=== PATIENT | male | born 1995 | race Caucasian/White ===

== ENCOUNTER 2017-04-25 20:10 | Emergency (ER) | payer BC ==
[2017-04-25 20:22] VITALS: BP 109/69; PULSE 116; RESP 16; TEMP 99; O2SAT 98
--- NOTE | 2017-04-25 20:38 | EDPHY ---
H & P Time Seen by Provider: 04/25/17 20:31 HPI/ROS: CHIEF COMPLAINT: Right middle digit laceration HISTORY OF PRESENT ILLNESS: 21-year-old male with up-to-date tetanus sustained accidental laceration right middle digit middle phalanx when he was cleaning glass and the glass broke. No paresthesia. No sensory motor deficit occurred shortly prior to arrival PHYSICAL EXAM (Prior to examination, patient consented to physical exam, hands were washed and my usual and customary physical exam procedures followed) 1) GENERAL: Well-developed, well-nourished, alert and oriented. Appears to be in no acute distress. 2) HEAD: Normocephalic 3) HEENT: sclera anicteric 4) LUNGS: Breathing comfortably. 5) SKIN: Right middle digit middle phalanx palmar aspect 2 cm transverse laceration. 6) MUSCULOSKELETAL: FDP FDS function intact . No signs of infection 7) NEUROLOGIC: Full sensation two-point discrimination intact distally Smoking Status: Never smoked Constitutional: Initial Vital Signs Temperature (C) 37.2 C 04/25/17 20:18 Heart Rate 116 H 04/25/17 20:18 Respiratory Rate 16 04/25/17 20:18 Blood Pressure 109/69 04/25/17 20:18 O2 Sat (%) 98 04/25/17 20:18 O2 Delivery Mode Room Air Allergies/Adverse Reactions: No Known Allergies Allergy (Unverified 01/30/16 23:03) Home Medications: Medication Instructions Recorded Adderall 10 mg Tablet 01/30/16 MDM/Departure - [facility] Imaging Results: Imaging Impressions Finger X-Ray 04/25/17 20:38 Impression: Soft tissue injury right 3rd finger, without evidence for osseous fracture or radiopaque foreign body. Procedures: Procedure: Laceration repair. I explained the indications, risks and benefits for both laceration repair and anesthetic administration. Verbal consent was obtained from the patient. The laceration on the right middle digit was anesthetized using 0.5% bupivicaine without epinephrine digital nerve block. After anesthetic administered the patient was observed for a period of time and had no apparent adverse effects. The wound was cleaned, prepped, draped in normal sterile fashion and explored to its base. No foreign body seen, no foreign bodies palpated. There were no deep structures involved. No tendon injury was identified. The wound was repaired with 4 simple interrupted 5 O Prolene sutures. The wound repair was simple. The procedure was performed by myself. Patient has been informed that scarring will occur, although efforts have been made to minimize this. ED Course/Re-evaluation: Care of patient under supervision of secondary supervising physician Dr Lyn Villafana. - Depart Disposition: Home, Routine, Self-Care Clinical Impression: Finger laceration Qualifiers: Encounter type: initial encounter Finger: middle finger Damage to nail status: without damage Foreign body presence: without foreign body Laterality: right Qualified Code(s): S61.212A - Laceration without foreign body of right middle finger without damage to nail, initial encounter Condition: Good Instructions: Care For Your Stitches (ED), Laceration (ED) Additional Instructions: Return to the ER if you develop redness, swelling, discharge, warmth to the wound, red streaks going up your arm, or any other symptoms that concern you. Referrals: Return, to the ER in 10 days for suture removal [Other] - As per Instructions
== END 2017-04-25 21:28 | disposition home or self-care (01) ==
PROC: 0HQFXZZ Repair Right Hand Skin, External Approach (ICD-10-PCS; principal; 2017-04-25)
DX: S61.212A Laceration without foreign body of right middle finger without damage to nail, initial encounter (principal); W25.XXXA Contact with sharp glass, initial encounter; Y93.G1 Activity, food preparation and clean up

== ENCOUNTER 2017-06-11 20:50 | Emergency (ER) | payer BC ==
--- NOTE | 2017-06-11 21:38 | EDPHY ---
H & P Stated Complaint: laceration ETOH Time Seen by Provider: 06/11/17 21:04 HPI/ROS: HPI CHIEF COMPLAINT: Multiple hand last night after punching a window, alk toxication HISTORY OF PRESENT ILLNESS: This patient is a 21-year-old male, [employer] student, he presents emergency room highly intoxicated with alcohol and he punched a glass window. Patient has multiple lacerations to both hands. Denies any other injuries. However he states he drank a large amount of alcohol this evening. Past Medical History: Denies medical history Past Surgical History: Denies surgical history Social History: [employer] student. Large amount of alcohol this evening. Multiple beers. Denies drugs or tobacco. Family History: Noncontributory ROS REVIEW OF SYSTEMS: A comprehensive 10 point review of systems is otherwise negative aside from elements mentioned in the history of present illness. Exam Constitutional intoxicated, smells of alcohol, triage nursing summary reviewed , vital signs reviewed, awake/alert. Eyes normal conjunctivae and sclera, EOMI, PERRLA. HENT normal inspection, atraumatic, moist mucus membranes, no epistaxis, neck supple/ no meningismus, no raccoon eyes. Respiratory clear to auscultation bilaterally, normal breath sounds, no respiratory distress, no wheezing. Cardiovascular rate normal, regular rhythm, no murmur, no edema, distal pulses normal. Gastrointestinal soft, non-tender, no rebound, no guarding, normal bowel sounds, no distension, no pulsatile mass. Genitourinary no CVA tenderness. Musculoskeletal no midline vertebral tenderness, full range of motion, no calf swelling, no tenderness of extremities, no meningismus, good pulses, neurovascularly intact. Skin bilateral hands: Over the dorsum of the hands he has multiple lacerations. On his right hand he has a 3 cm laceration over the 3rd digit dorsal aspect over the knuckle. The left hand shows 2 cm laceration over the 3rd digit over the knuckle. At the base of the 5th digit on the left hand there is a 3 cm laceration present. No arterial vomit. No tendon involvement. He is neurovascular intact bilaterally. Full range of motion of both digits and hands. Neurologic awake, alert and oriented x 3, AAOx3, moves all 4 extremities equally, motor intact, sensory intact, CN II-XII intact, normal cerebellar, normal vision, normal speech. Psychiatric normal mood/affect. Heme/Lymph/Immune no lymphadenopathy. Differential Diagnosis: Includes but is not limited to in a particular order multiple hand lacerations, alcohol intoxication, hand fractures, foreign bodies , glass foreign body, tendon injury, arterial injury Medical Decision Making: Patient's hands been copiously cleaned and irrigated his wounds have been copiously cleaned and irrigated, there are no foreign bodies visualized. Specifically no retained glass. No tendon injury. No arterial injury. His lacerations will be repaired. X-rays have been reviewed of both hands no foreign bodies visualized. No hand fractures. Re-evaluation: Laceration Repair Procedure: Verbal Consent was obtained, Under sterile conditions, The patient had lidocaine with epinephrine used approximately 3ccs to local anesthetize the RIGHT HAND third digit, 3CM Laceration. The wound was copiously irrigated with sterile fluid, the wound was explored for foreign bodies there were none visualized, the wound was explored with a sterile glove to the base. There are no deep structures involved, including no arterial injury. TWO 6.O PROLENE interrupted Sutures were placed in this patient's laceration. He had good close approximation of the wound edges. He Tolerated this well. Laceration Repair Procedure: Verbal Consent was obtained, Under sterile conditions, The patient had lidocaine with epinephrine used approximately 3ccs to local anesthetize theLEFT HAND 2CM 3rd Digit Laceration. The wound was copiously irrigated with sterile fluid, the wound was explored for foreign bodies there were none visualized, the wound was explored with a sterile glove to the base. There are no deep structures involved, including no arterial injury. ONE PROLENE 6.O interrupted Sutures were placed in this patient's laceration. He had good close approximation of the wound edges. He Tolerated this well. Laceration Repair Procedure: Verbal Consent was obtained, Under sterile conditions, The patient had lidocaine with epinephrine used approximately 3ccs to local anesthetize the LEFT HAND 3CM base of fifth digit, dorsal side Laceration. The wound was copiously irrigated with sterile fluid, the wound was explored for foreign bodies there were none visualized, the wound was explored with a sterile glove to the base. There are no deep structures involved, including no arterial injury. TWO PROLENE 6.O interrupted Sutures were placed in this patient's laceration. He had good close approximation of the wound edges. He Tolerated this well. Patient understands keep his wound clean, dry and protected. Sutures need to be removed in 12-14 days. Patient understands. Band-Aids have been placed for wound protection. Understands have sutures removed in 12 days. Understands to keep wound clean dry and intact. Understands watch for signs of infection return emergency room if there is any worsening symptoms questions or concerns. - Personal History Current Tetanus/Diphtheria Vaccine: Yes Current Tetanus Diphtheria and Acellular Pertussis (TDAP): Yes - Medical/Surgical History Hx Asthma: No Hx Chronic Respiratory Disease: No Hx Diabetes: No Hx Cardiac Disease: No Hx Renal Disease: No Hx Cirrhosis: No Hx Alcoholism: No Hx HIV/AIDS: No Hx Splenectomy or Spleen Trauma: No Other PMH: denies - Social History Smoking Status: Never smoked Constitutional: Initial Vital Signs Temperature (C) 36.9 C 06/11/17 21:22 Heart Rate 106 H 06/11/17 21:22 Respiratory Rate 16 06/11/17 21:22 Blood Pressure 122/73 H 06/11/17 21:22 O2 Sat (%) 95 06/11/17 21:22 O2 Delivery Mode Room Air Allergies/Adverse Reactions: No Known Allergies Allergy (Unverified 01/30/16 23:03) Home Medications: Medication Instructions Recorded Adderall 10 mg Tablet 01/30/16 Departure - Departure Disposition: Home, Routine, Self-Care Clinical Impression: Laceration Alcohol intoxication Qualifiers: Complication of substance-induced condition: uncomplicated Qualified Code(s): F10.920 - Alcohol use, unspecified with intoxication, uncomplicated Condition: Good Instructions: Alcohol Intoxication (ED), Abuse of Alcohol (ED), Laceration (ED) Additional Instructions: 1. Have her sutures removed in 12-14 days. 2. Return emergency room if you have worsening symptoms questions or concerns. Referrals: NONE *PRIMARY CARE P,. [Primary Care Provider] - As per Instructions
[2017-06-11 22:33] VITALS: BP 120/94; PULSE 110; RESP 18; TEMP 97.7; O2SAT 96
== END 2017-06-11 22:33 | disposition home or self-care (01) ==
LOC: EDUNIT#
DX: S61.411A Laceration without foreign body of right hand, initial encounter (principal); S61.412A Laceration without foreign body of left hand, initial encounter; F10.920 Alcohol use, unspecified with intoxication, uncomplicated; W25.XXXA Contact with sharp glass, initial encounter; Y92.214 College as the place of occurrence of the external cause